=== PATIENT | female | born 1955 | race Caucasian/White ===

== ENCOUNTER 2017-03-19 04:01 | Outpatient (CLI) | payer MEDICARE, OTHER ==
[2017-03-19 06:36] LABS: Anion Gap 16 mmol/L (10-20); BUN (Urea Nitrogen) 20 mg/dL (9.8-20.1); Calc. Creatinine Clearance 0 mL/min (70-130); Carbon Dioxide 32 mmol/L (23-31); Chloride 101 mmol/L (98-107); Estimated GFR-MDRD 82; Glucose 85 mg/dL (80-115); Sodium 146 mmol/L (136-145)
[2017-03-19 06:52] LABS: Potassium 2.9 mmol/L (3.5-5.1)
== END 2017-03-19 04:02 | disposition home or self-care (01) ==
LOC: BURMANOR 04:01
PROVIDERS: ATTEND Clinical Nurse Specialist Medical-Surgical
DX: G40.909 Epilepsy, unspecified, not intractable, without status epilepticus (principal)
CPT/HCPCS: 36415; 80048

== ENCOUNTER 2017-03-26 01:00 | Outpatient (CLI) | payer MEDICARE, OTHER ==
[2017-03-26 07:24] LABS: Anion Gap 13 mmol/L (10-20); BUN (Urea Nitrogen) 13 mg/dL (9.8-20.1); Calc. Creatinine Clearance 0 mL/min (70-130); Calcium 8.5 mg/dL (7.8-10.44); Carbon Dioxide 31 mmol/L (23-31); Chloride 100 mmol/L (98-107); Estimated GFR-MDRD Greater than 90; Glucose 73 mg/dL (80-115); Potassium 3.1 mmol/L (3.5-5.1); Sodium 141 mmol/L (136-145)
== END 2017-03-26 01:01 | disposition home or self-care (01) ==
LOC: BURMANOR 01:00
PROVIDERS: ATTEND Clinical Nurse Specialist Medical-Surgical
DX: G40.909 Epilepsy, unspecified, not intractable, without status epilepticus (principal); E87.6 Hypokalemia
CPT/HCPCS: 36415; 80048

== ENCOUNTER 2020-03-08 17:26 | Outpatient (CLI) | payer MEDICARE, OTHER ==
--- NOTE | 2020-03-08 18:59 | RAD ---
ABDOMEN: 03/08/20 Supine views of the abdomen are compared with the 10/07 and 10/08/14 studies. The patient is known to h ave a chronically dilated colon. Today's exam shows marked distention of the colon, much worse than her norm. Some loops are 10 cm wid e or larger. There is a very large amount of fecal material in the colon. This study would be unable to rule in or rule out free air. There is some thickening or blunting that appears to be present in t he right costophrenic angle region. The possibility of some pleural fluid is raised and is not seen o n prior exams. CT of the abdomen/pelvis would be useful if further definition is needed. Severe scoli osis is noted as usual. IMPRESSION: 1. Marked colonic distention and severe constipation. The degree of distention extends beyond w hat is normally seen in her chronic dilation. At least some level of obstruction is presumably presen t presumably from the stool. Further workup or monitoring will be required. 2. Possible small right pleural effusion. Findings discussed with Williams Real at 1752 on 03/08/20. POS: HOME
== END 2020-03-08 17:27 | disposition home or self-care (01) ==
LOC: BURRAD 17:26
PROVIDERS: ATTEND Family Medicine
DX: R14.0 Abdominal distension (gaseous) (principal); R19.5 Other fecal abnormalities; K59.00 Constipation, unspecified
CPT/HCPCS: 74018

== ENCOUNTER 2020-10-19 17:47 | Outpatient (CLI) | payer MEDICARE, OTHER ==
[2020-10-19 18:11] LABS: Mean Corpuscular Hemoglobin 31.4 pg (27.0-31.0); Mean Corpuscular Volume 94.9 fL (78.0-98.0); Mean Platelet Volume 6.2 fL (7.4-10.4); Platelet Count 248 thou/uL (130-400); RBC Distribution Width 11.6 % (11.5-14.5); Red Blood Cell (RBC) Count 4.46 mill/uL (4.20-5.40); White Blood Cell (WBC) Count 10.3 thou/uL (4.8-10.8)
[2020-10-19 18:19] LABS: Bilirubin Negative (Negative); Blood, Urine Small (Negative); Clarity Turbid (Clear); Glucose, Urine (Dipstick) Negative (Negative); Ketone, Urine Negative (Negative); Leukocyte Large (Negative); Nitrite Negative (Negative); Protein, Urine (Dipstick) Negative (Neg-Trace); Specific Gravity, Urine 1.015 (1.005-1.030); Urobilinogen 0.2 mg/dL (Less than 2); pH, Urine 5.5 (5.0-9.0)
[2020-10-19 18:23] LABS: Anion Gap 16 mmol/L (10-20); BUN (Urea Nitrogen) 11 mg/dL (9.8-20.1); Calc. Creatinine Clearance 0 mL/min (70-130); Calcium 8.3 mg/dL (7.8-10.44); Carbon Dioxide 28 mmol/L (23-31); Chloride 90 mmol/L (98-107); Glucose 76 mg/dL (80-115); Magnesium 1.8 mg/dL (1.6-2.6); Potassium 4.9 mmol/L (3.5-5.1); Sodium 129 mmol/L (136-145)
[2020-10-19 18:36] LABS: Bacteria/HPF 3+ HPF (None Seen); RBC/HPF 0-3 HPF (0-3); Squamous Epithelial 0-3 HPF (0-3); WBC/HPF Greater Than 50 HPF (0-3)
== END 2020-10-19 17:48 | disposition home or self-care (01) ==
LOC: BURMANOR 17:47
PROVIDERS: ATTEND Family Medicine
DX: G40.909 Epilepsy, unspecified, not intractable, without status epilepticus (principal); E87.6 Hypokalemia; N39.0 Urinary tract infection, site not specified; R94.6 Abnormal results of thyroid function studies; R29.818 Other symptoms and signs involving the nervous system
CPT/HCPCS: 80048; 80177; 80184; 81003; 81015; 83735; 84443; 85027; 87077; 87086; 87186

== ENCOUNTER 2022-01-29 16:04 | Outpatient (CLI) | payer MEDICARE, OTHER | END 2022-01-29 16:05 | disposition home or self-care (01) | LOC: BURMANOR 16:04 | PROVIDERS: ATTEND Nurse Practitioner Family | DX: G40.909 Epilepsy, unspecified, not intractable, without status epilepticus (principal) | CPT/HCPCS: 80177 ==

== ENCOUNTER 2022-05-15 17:34 | Outpatient (CLI) | payer MEDICARE, OTHER ==
[2022-05-15 18:30] LABS: INR-International Normal Ratio 0.9; Prothrombin Time 12.8 sec (12.0-14.7)
[2022-05-15 18:31] LABS: PTT 36.4 sec (22.9-36.1)
[2022-05-15 18:40] LABS: ALT (SGPT) 23 U/L (8-55); AST (SGOT) 16 U/L (5-34); Albumin 3.5 g/dL (3.4-4.8); Alkaline Phosphatase 130 U/L (40-110); Anion Gap 15 mmol/L (10-20); BUN (Urea Nitrogen) 11 mg/dL (9.8-20.1); Bilirubin, Total Less than 0.2 mg/dL (0.2-1.2); Calc. Creatinine Clearance 0 mL/min (70-130); Calcium 8.6 mg/dL (7.8-10.44); Carbon Dioxide 23 mmol/L (23-31); Chloride 92 mmol/L (98-107); Estimated GFR 99; Glucose 93 mg/dL (80-115); Lipase 22 U/L (8-78); Potassium 4.7 mmol/L (3.5-5.1); Protein, Total 6.5 g/dL (5.8-8.1); Sodium 125 mmol/L (136-145)
[2022-05-15 18:49] LABS: Hemoglobin 14.2 g/dL (12.0-16.0); Mean Corpuscular HGB CONC 34.2 g/dL (32.0-36.0); Mean Corpuscular Hemoglobin 32.3 pg (27.0-31.0); Mean Corpuscular Volume 94.3 fl (78.0-98.0); Mean Platelet Volume 9.5 fL (7.4-10.4); Platelet Count 45 10x3/uL (130-400); RBC Distribution Width 11.3 % (11.5-14.5); Red Blood Cell (RBC) Count 4.41 mill/uL (4.20-5.40); White Blood Cell (WBC) Count 7.7 10x3/uL (4.8-10.8)
[2022-05-15 22:08] LABS: Iron 53 ug/dL (50-170)
== END 2022-05-15 17:35 | disposition home or self-care (01) ==
LOC: BURMANOR 17:34
PROVIDERS: ATTEND Registered Nurse Community Health
DX: T45.4X1A Poisoning by iron and its compounds, accidental (unintentional), initial encounter (principal); D63.8 Anemia in other chronic diseases classified elsewhere
CPT/HCPCS: 80053; 82150; 82728; 83540; 83690; 85027; 85610; 85730

== ENCOUNTER 2022-07-16 11:27 | Outpatient (CLI) | payer MEDICARE, OTHER | END 2022-07-16 11:28 | disposition home or self-care (01) | LOC: BURRAD 11:27 | PROVIDERS: ATTEND Family Medicine | DX: R10.9 Unspecified abdominal pain (principal) | CPT/HCPCS: 74018 ==